=== PATIENT | male | born 1980 | race Caucasian/White ===

== ENCOUNTER 2018-07-08 12:27 | Inpatient (IN) | payer OTHER ==
[2018-07-08 14:10] VITALS: BMI 29.3
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
[2018-07-08] MEDS ORDERED: ACETAMINOPHEN 325 MG TABLET (FP) PO PRN ×2 (15:20)
[2018-07-08] MEDS ORDERED: MENTHOL/PHENOL 1 EACH UD MM PRN (15:20)
[2018-07-08] MEDS ORDERED: MAG HYDROX/AL HYDROX/SIMETH 30 ML UNIT-DOSE CUP PO PRN (15:20)
[2018-07-08] MEDS ORDERED: hydrOXYzine PAMOATE 25 MG CAPSULE (FP) PO PRN (15:20)
[2018-07-08] MEDS ORDERED: MAGNESIUM CITRATE 300 ML BOTTLE PO PRN (15:20)
[2018-07-08] MEDS ORDERED: IBUPROFEN 400 MG TABLET (FP) PO PRN (15:20)
[2018-07-08] MEDS ORDERED: METHOCARBAMOL 500 MG TABLET PO PRN (15:20)
[2018-07-08] MEDS ORDERED: MAGNESIUM HYDROX 2400MG/30ML ORAL SUSPENSION 30 ML CUP PO PRN (15:20)
[2018-07-08] MEDS ORDERED: BISMUTH SUBSALICYLATE 524 MG/30 ML UD PO PRN (15:20)
[2018-07-08] MEDS ORDERED: MELATONIN 5 MG TABLETS PO PRN (15:20)
[2018-07-08] MEDS ORDERED: ALBUTEROL SO4 2.5/IPRATROPIUM 0.5 INH SOL 3 ML VIAL.NEB. NEB PRN (15:30)
[2018-07-08] MEDS: diazePAM 5 MG TABLET PO PRN (17:55)
[2018-07-08] MEDS: NICOTINE 21 MG/24 HOURS TOPICAL PATCH TD SCH (18:56)
[2018-07-08] MEDS ORDERED: metFORMIN HCL 500 MG TABLET (FP) PO SCH (22:00)
[2018-07-08] MEDS: diazePAM 5 MG TABLET PO SCH (22:36)
[2018-07-08] MEDS: THIAMINE HCL 100 MG TABLET (FP) PO SCH (22:36)
[2018-07-08 22:55] LABS: HEMATOCRIT 39.8 % (35.4-49); HEMOGLOBIN 13.8 GM/dL (11.7-16.9); MCH 29.2 pg (25.7-33.7); MCHC 34.8 g/dl (32.0-35.9); MEAN CELL VOLUME 83.9 fl (80-96); MEAN PLT VOLUME 8.1 fl (7.5-11.1); RBC 4.75 M/mm3 (4.00-5.60); RDW 14.2 % (11.9-15.9); WHITE BLOOD COUNT 5.3 K/mm3 (4.0-10.0)
[2018-07-08 23:08] LABS: PH,URINE 5.5 (5.0-8.0); URINE APPEARANCE TURBID; URINE BILIRUBIN 1+ (NEGATIVE); URINE COLOR DK YELLOW; URINE GLUCOSE (UA) NEGATIVE (NEGATIVE); URINE KETONE TRACE (NEGATIVE); URINE LEUK ESTERASE NEGATIVE (NEGATIVE); URINE NITRITE NEGATIVE (NEGATIVE); URINE PROTEIN NEGATIVE (NEGATIVE)
[2018-07-08 23:10] LABS: ALBUMIN 4.1 g/dl (3.4-5.0); ALK PHOS 96 U/L (45-117); ANION GAP 7 MMOL/L (8-16); BILIRUBIN,TOTAL 0.6 mg/dL (0.2-1); BLOOD UREA NITROGEN 13 mg/dL (7-18); CALCIUM 9.2 mg/dL (8.5-10.1); CHLORIDE 102 mmol/L (98-107); CO2 26 mmol/L (21-32); CREATININE 0.9 mg/dL (0.55-1.3); GLUCOSE,RANDOM 75 mg/dL (74-106); POTASSIUM 3.8 mmol/L (3.5-5.1); SGOT/AST 193 U/L (15-37); SGPT/ALT 250 U/L (13-61); SODIUM 135 mmol/L (136-145); TOT PROT 9.2 g/dl (6.4-8.2)
[2018-07-08 23:22] LABS: PLATELET COUNT 169 K/MM3 (134-434)
[2018-07-09] MEDS: ALBUTEROL SO4 8 GM HFA INHALER IH PRN ×2 (03:34→10:33)
[2018-07-09] MEDS: diazePAM 5 MG TABLET PO SCH ×3 (05:27→21:58)
[2018-07-09] MEDS ORDERED: METHADONE HCL 40 MG DISPERSABLE TABLET PO ONE (08:35)
[2018-07-09] MEDS: PRENATAL VITAMINS W/ FOLIC ACID TABLET (FP) PO SCH (10:33)
[2018-07-09] MEDS: diazePAM 5 MG TABLET PO PRN (10:33)
[2018-07-09] MEDS: NICOTINE 21 MG/24 HOURS TOPICAL PATCH TD SCH (10:33)
[2018-07-09] MEDS: NICOTINE POLACRILEX 2 MG GUM BUC PRN ×2 (12:53→21:58)
--- NOTE | 2018-07-09 13:48 | PN ---
[facility] CIWA - CIWA Score Nausea/Vomitin-No Nausea/No Vomiting Muscle Tremors: 4-Moderate,w/Arms Extend Anxiety: 3 Agitation: 4-Moderately Restless Paroxysmal Sweats: 3 Orientation: 0-Oriented Tacttile Disturbances: 0-None Auditory Disturbances: 0-None Visual Disturbances: 0-None Headache: 1-Very Mild CIWA-Ar Total Score: 15 BHS Progress Note (SOAP) Subjective: sweats shakes body aches irritable agitation interrupted sleep Objective: 07/09/18 13:47 Vital Signs Temperature 98.2 F 07/09/18 09:07 Pulse Rate 63 07/09/18 09:07 Respiratory Rate 18 07/09/18 09:07 Blood Pressure 138/71 07/09/18 09:07 O2 Sat by Pulse Oximetry (%) Laboratory Tests 07/08/18 07/08/18 07/08/18 15:00 15:00 15:00 WBC 5.3 RBC 4.75 Hgb 13.8 Hct 39.8 MCV 83.9 MCH 29.2 MCHC 34.8 RDW 14.2 Plt Count 169 MPV 8.1 Sodium 135 L Potassium 3.8 Chloride 102 Carbon Dioxide 26 Anion Gap 7 L BUN 13 Creatinine 0.9 Creat Clearance w eGFR 94.44 POC Glucometer Random Glucose 75 Calcium 9.2 Total Bilirubin 0.6 AST 193 H ALT 250 H Alkaline Phosphatase 96 Total Protein 9.2 H Albumin 4.1 Urine Color Urine Appearance Urine pH Ur Specific [place] Urine Protein Urine Glucose (UA) Urine Ketones Urine Blood Urine Nitrite Urine Bilirubin Urine Urobilinogen Ur Leukocyte Esterase RPR Titer Nonreactive 07/08/18 07/08/18 07/09/18 16:02 22:50 07:19 WBC RBC Hgb Hct MCV MCH MCHC RDW Plt Count MPV Sodium Potassium Chloride Carbon Dioxide Anion Gap BUN Creatinine Creat Clearance w eGFR POC Glucometer 57 101 Random Glucose Calcium Total Bilirubin AST ALT Alkaline Phosphatase Total Protein Albumin Urine Color Dk yellow Urine Appearance Turbid Urine pH 5.5 Ur Specific [place] 1.032 Urine Protein Negative Urine Glucose (UA) Negative Urine Ketones Trace H Urine Blood Negative Urine Nitrite Negative Urine Bilirubin 1+ H Urine Urobilinogen 1.0 Ur Leukocyte Esterase Negative RPR Titer elevated ast/alt aaox3 ambulating no acute distress Assessment: 07/09/18 13:48 withdrawals sx Plan: continue detox increase fluids repeat ast/alt d/c tylenol
[2018-07-09] MEDS ORDERED: SODIUM PHOSPHATE/NA BIPHOS 133 ML ENEMA PR ONE (17:00)
[2018-07-09] MEDS: THIAMINE HCL 100 MG TABLET (FP) PO SCH (21:59)
[2018-07-09] MEDS ORDERED: SENNOSIDES 8.6MG TABLET (FP) PO SCH (22:00)
[2018-07-09] MEDS: DOCUSATE SODIUM 100 MG CAPSULE (FP) PO SCH (22:23)
[2018-07-10] MEDS: DOCUSATE SODIUM 100 MG CAPSULE (FP) PO SCH ×2 (05:28→14:30)
[2018-07-10] MEDS ORDERED: METHADONE HCL 40 MG DISPERSABLE TABLET PO SCH (06:00)
[2018-07-10] MEDS ORDERED: diazePAM 5 MG TABLET PO SCH (10:00)
[2018-07-10 10:06] LABS: SGOT/AST 197 U/L (15-37); SGPT/ALT 249 U/L (13-61)
[2018-07-10] MEDS: NICOTINE 21 MG/24 HOURS TOPICAL PATCH TD SCH (12:44)
[2018-07-10] MEDS: PRENATAL VITAMINS W/ FOLIC ACID TABLET (FP) PO SCH (12:45)
[2018-07-10 13:06] VITALS: BP 120/70; PULSE 62; TEMP 97.9
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
[2018-07-11] MEDS ORDERED: diazePAM 5 MG TABLET PO SCH (06:00)
== END 2018-07-10 16:05 | disposition home or self-care (01) | DRG 773 ==
LOC: YASAS 12:27 → Y6N 16:06
PROVIDERS: ADMIT Surgery; ATTEND Surgery
PROC: HZ2ZZZZ Detoxification Services for Substance Abuse Treatment (ICD-10-PCS; principal; 2018-07-08)
DX: F10.230 Alcohol dependence with withdrawal, uncomplicated (principal); F14.20 Cocaine dependence, uncomplicated; F11.20 Opioid dependence, uncomplicated; F12.20 Cannabis dependence, uncomplicated; F17.210 Nicotine dependence, cigarettes, uncomplicated; E11.9 Type 2 diabetes mellitus without complications; Z79.84 Long term (current) use of oral hypoglycemic drugs; J45.909 Unspecified asthma, uncomplicated; Z86.19 Personal history of other infectious and parasitic diseases; Z91.14 Patient's other noncompliance with medication regimen
CPT/HCPCS: 36415; 80053; 81003; 82962; 84450; 84460; 85027; 86593

== ENCOUNTER 2022-12-24 15:39 | Inpatient (IN) | payer OTHER ==
[2022-12-24 17:42] VITALS: BMI 22.0
[2022-12-24] MEDS ORDERED: BISMUTH SUBSALICYLATE 524 MG/30 ML PO PRN (19:07)
[2022-12-24] MEDS ORDERED: POLYETHYLENE GLYCOL (HEALTHYLAX) 3350 17 GM PACKET PO PRN (19:07)
[2022-12-24] MEDS ORDERED: ACETAMINOPHEN 325 MG TABLET (FP) PO PRN (19:07)
[2022-12-24] MEDS ORDERED: BENZOCAINE/MENTHOL (CHLORASEPTIC ) LOZENGE MM PRN (19:07)
[2022-12-24] MEDS ORDERED: MAGNESIUM HYDROX 2400MG/30ML ORAL SUSPENSION 30 ML CUP PO PRN (19:07)
[2022-12-24] MEDS ORDERED: NALOXONE HCL (KLOXXADO) 8 MG SPRAY NS PRN (19:07)
[2022-12-24] MEDS ORDERED: NALOXONE HCL 0.4 MG/ML VIAL IM PRN (19:07)
[2022-12-24] MEDS ORDERED: NICOTINE POLACRILEX 2 MG GUM BUC PRN (19:07)
[2022-12-24] MEDS ORDERED: IBUPROFEN 400 MG TABLET (FP) PO PRN (19:07)
[2022-12-24] MEDS ORDERED: MAG HYDROX/AL HYDROX/SIMETH 30 ML UNIT-DOSE CUP PO PRN (19:07)
[2022-12-24] MEDS ORDERED: DICYCLOMINE HCL 10 MG CAPSULE PO PRN (19:07)
[2022-12-24] MEDS ORDERED: LOPERAMIDE HCL 2 MG CAPSULE PO PRN (19:07)
[2022-12-24] MEDS ORDERED: BENZONATATE 200 MG CAPSULE PO PRN (19:07)
[2022-12-24] MEDS ORDERED: methaDONE HCL 10 MG TABLET (FOR DETOX USE ONLY) PO ONE (19:07)
[2022-12-24] MEDS ORDERED: LORazepam 1 MG TABLET PO PRN (19:07)
[2022-12-24] MEDS ORDERED: guaiFENesin 600 MG TABLET.ER (FP) PO PRN (19:07)
[2022-12-24] MEDS ORDERED: IBUPROFEN 600 MG TABLET (FP) PO PRN (19:07)
[2022-12-24] MEDS ORDERED: methaDONE HCL 10 MG TABLET (FOR DETOX USE ONLY) ONE (19:26)
[2022-12-24] MEDS ORDERED: MELATONIN 5 MG TABLETS PO SCH (22:00)
[2022-12-24] MEDS: THIAMINE HCL 100 MG TABLET (FP) PO SCH (22:24)
[2022-12-24] MEDS: LORazepam 2 MG TABLET PO SCH ×4 (22:30→22:33)
[2022-12-25] MEDS: LORazepam 1 MG TABLET PO SCH ×4 (05:32→22:14)
[2022-12-25 08:57] LABS: POTASSIUM 3.7 mmol/L (3.5-5.1)
[2022-12-25 08:58] LABS: HEMATOCRIT 37.5 % (35.4-49); HEMOGLOBIN 13.5 GM/dL (11.7-16.9); MCH 29.4 pg (25.7-33.7); MCHC 35.9 g/dl (32.0-35.9); MEAN CELL VOLUME 81.9 fl (80-96); MEAN PLT VOLUME 7.2 fl (7.5-11.1); PLATELET COUNT 201 10^3/uL (134-434); RBC 4.58 M/mm3 (4.00-5.60); RDW 14.2 % (11.9-15.9); WHITE BLOOD COUNT 8.1 K/mm3 (4.0-10.0)
[2022-12-25 09:11] LABS: ALBUMIN 3.4 g/dl (3.4-5.0); BLOOD UREA NITROGEN 13.3 mg/dL (7-18)
[2022-12-25 09:14] LABS: CREATININE 0.8 mg/dL (0.55-1.3)
[2022-12-25 09:15] LABS: BILIRUBIN,TOTAL 0.6 mg/dL (0.2-1); TOT PROT 8.2 g/dl (6.4-8.2)
[2022-12-25] MEDS: PRENATAL VITAMINS W/ FOLIC ACID TABLET (FP) PO SCH (10:10)
[2022-12-25] MEDS: NICOTINE 14 MG/24 HOURS TOPICAL PATCH TD SCH (10:10)
[2022-12-25] MEDS: LACTULOSE 20 GM/30 ML UDC (FOR ORAL USE ONLY) PO SCH ×3 (13:30→22:14)
[2022-12-25] MEDS ORDERED: ALBUTEROL SO4 2.5/IPRATROPIUM 0.5 INH SOL 3 ML VIAL.NEB. NEB PRN (13:41)
[2022-12-25] MEDS: ALBUTEROL SO4 HFA INHALER IH PRN (13:43)
[2022-12-25] MEDS ORDERED: predniSONE 20 MG TABLET (UD) PO ONE (14:19)
[2022-12-25] MEDS ORDERED: predniSONE 10 MG TABLET (UD) PO ONE (14:21)
[2022-12-25] MEDS: THIAMINE HCL 100 MG TABLET (FP) PO SCH (22:14)
[2022-12-25] MEDS: SUVOREXANT 10 MG TABLET PO PRN (22:15)
[2022-12-26] MEDS ORDERED: LORazepam 0.5 MG TABLET PO PRN
[2022-12-26] MEDS: hydrOXYzine PAMOATE 25 MG CAPSULE (FP) PO PRN (01:20)
[2022-12-26] MEDS: cloNIDine HCL 0.1 MG TABLET PO PRN ×2 (01:20→05:23)
[2022-12-26] MEDS: METHOCARBAMOL 500 MG TABLET PO PRN (02:37)
[2022-12-26] MEDS: LORazepam 0.5 MG TABLET PO SCH ×4 (05:23→22:19)
[2022-12-26] MEDS ORDERED: predniSONE 10 MG TABLET (UD) PO ONE (10:00)
[2022-12-26] MEDS ORDERED: methaDONE HCL 10 MG TABLET (FOR DETOX USE ONLY) PO ONE (10:00)
[2022-12-26] MEDS: LACTULOSE 20 GM/30 ML UDC (FOR ORAL USE ONLY) PO SCH ×5 (10:06→22:19)
[2022-12-26] MEDS: PRENATAL VITAMINS W/ FOLIC ACID TABLET (FP) PO SCH (10:06)
[2022-12-26] MEDS: NICOTINE 14 MG/24 HOURS TOPICAL PATCH TD SCH (10:10)
[2022-12-26] MEDS: THIAMINE HCL 100 MG TABLET (FP) PO SCH (22:19)
[2022-12-26] MEDS: SUVOREXANT 10 MG TABLET PO PRN (22:20)
[2022-12-26] MEDS ORDERED: COLLOIDAL OATMEAL 1 BAR EACH TP PRN (23:41)
[2022-12-27] MEDS ORDERED: LORazepam 0.5 MG TABLET PO ONE (05:00)
[2022-12-27 09:07] VITALS: RESP 18
[2022-12-27] MEDS ORDERED: predniSONE 20 MG TABLET (UD) PO ONE (10:00)
[2022-12-27] MEDS: hydrOXYzine PAMOATE 25 MG CAPSULE (FP) PO PRN ×2 (10:07→18:10)
[2022-12-27] MEDS: METHOCARBAMOL 500 MG TABLET PO PRN ×2 (10:07→18:10)
[2022-12-27] MEDS: LACTULOSE 20 GM/30 ML UDC (FOR ORAL USE ONLY) PO SCH ×4 (10:07→22:39)
[2022-12-27] MEDS: NICOTINE 14 MG/24 HOURS TOPICAL PATCH TD SCH (10:12)
[2022-12-27] MEDS: PRENATAL VITAMINS W/ FOLIC ACID TABLET (FP) PO SCH (11:21)
[2022-12-27] MEDS: THIAMINE HCL 100 MG TABLET (FP) PO SCH (22:42)
[2022-12-27] MEDS ORDERED: GABAPENTIN 100 MG CAPSULE PO SCH (23:45)
[2022-12-28] MEDS ORDERED: predniSONE 10 MG TABLET (UD) PO ONE (01:00)
[2022-12-28] MEDS: SUVOREXANT 10 MG TABLET PO PRN (01:08)
[2022-12-28 08:54] VITALS: BP 122/76; PULSE 68; TEMP 98.1
[2022-12-28] MEDS ORDERED: GABAPENTIN 100 MG CAPSULE PO SCH (10:00)
[2022-12-28] MEDS ORDERED: methaDONE HCL 10 MG TABLET (FOR DETOX USE ONLY) PO ONE (10:00)
[2022-12-28] MEDS: ALBUTEROL SO4 HFA INHALER IH PRN (10:27)
[2022-12-29] MEDS ORDERED: predniSONE 5 MG TABLET (UD) PO ONE (06:00)
== END 2022-12-28 10:28 | disposition left against medical advice (07) | DRG 770 ==
LOC: YASAS 15:39 → Y3N 20:07
PROVIDERS: ADMIT Allergy & Immunology; ATTEND Surgery
PROC: HZ2ZZZZ Detoxification Services for Substance Abuse Treatment (ICD-10-PCS; principal; 2022-12-24)
DX: F11.23 Opioid dependence with withdrawal (principal); F10.230 Alcohol dependence with withdrawal, uncomplicated; F14.20 Cocaine dependence, uncomplicated; F13.20 Sedative, hypnotic or anxiolytic dependence, uncomplicated; F12.20 Cannabis dependence, uncomplicated; F17.210 Nicotine dependence, cigarettes, uncomplicated; F19.280 Other psychoactive substance dependence with psychoactive substance-induced anxiety disorder; F19.282 Other psychoactive substance dependence with psychoactive substance-induced sleep disorder; J45.30 Mild persistent asthma, uncomplicated; M54.50 Low back pain, unspecified; G89.29 Other chronic pain; R79.89 Other specified abnormal findings of blood chemistry; Z86.39 Personal history of other endocrine, nutritional and metabolic disease; Z86.79 Personal history of other diseases of the circulatory system
CPT/HCPCS: 36415; 80053; 82140; 82962; 85027; 86780; 87635; 87811; 93005; 93010; 94640